=== PATIENT | male | born 1985 | race African-American/Black ===

== ENCOUNTER 2020-10-23 14:06 | Emergency (ER) | payer SELFPAY ==
[~2020-10-23] VITALS: Ht 175.3 cm; Wt 113.4 kg
[2020-10-23 14:22] VITALS: BP 134/81
--- NOTE | 2020-10-23 14:30 | NUR ---
BIBS for c/o itching to hands x 1 week . Will continue to monitor the patient.
[2020-10-23] MEDS ORDERED: DIPH25CA83 PO (14:42)
[2020-10-23] MEDS ORDERED: FAMO-131 PO (14:42)
[2020-10-23] MEDS ORDERED: PRED50TA PO (14:42)
--- NOTE | 2020-10-23 14:50 | NUR ---
Patient discharged to home in stable condition. Written and verbal after care instructions given. Patient verbalizes understanding of instruction.
== END 2020-10-23 15:07 | disposition home or self-care (01) ==
LOC: ER 14:11
DX: T78.40XA Allergy, unspecified, initial encounter (principal); X58.XXXA Exposure to other specified factors, initial encounter